=== PATIENT | male | born 1955 | race Caucasian/White ===

== ENCOUNTER 2018-09-07 11:24 | Emergency (ER) | payer OTHER ==
[~2018-09-07] VITALS: Ht 175.3 cm; Wt 76.2 kg
[2018-09-07] MEDS ORDERED: COLESTEROL (12:56)
[2018-09-07] MEDS ORDERED: ALEGRA (12:56)
== END 2018-09-07 15:08 | disposition home or self-care (01) ==
LOC: ER 11:24
DX: S43.491A Other sprain of right shoulder joint, initial encounter (principal); X50.0XXA Overexertion from strenuous movement or load, initial encounter; Y93.89 Activity, other specified; Y92.832 Beach as the place of occurrence of the external cause; Y99.8 Other external cause status

== ENCOUNTER 2020-04-10 15:46 | Outpatient (CLI) | payer OTHER ==
[~2020-04-10 15:46] MED LIST: ALEGRA; COLESTEROL
== END 2020-04-10 15:56 | disposition home or self-care (01) ==
LOC: RAD 15:46
PROVIDERS: ATTEND Urology
DX: Q61.8 Other cystic kidney diseases (principal); N40.0 Benign prostatic hyperplasia without lower urinary tract symptoms; N30.00 Acute cystitis without hematuria; Z01.811 Encounter for preprocedural respiratory examination; R31.1 Benign essential microscopic hematuria

== ENCOUNTER → 2023-12-31 11:48 | Outpatient (CLI) | payer OTHER | END | disposition home or self-care (01) | LOC: NUCLEAR 11:00 | PROVIDERS: ATTEND General Practice | DX: R20.0 Anesthesia of skin (principal); R06.02 Shortness of breath ==

== ENCOUNTER 2024-09-07 14:25 | Outpatient (CLI) | payer OTHER | END 2024-09-07 14:34 | disposition home or self-care (01) | LOC: SONOGRAMA 14:25 | PROVIDERS: ATTEND Urology | DX: N40.0 Benign prostatic hyperplasia without lower urinary tract symptoms (principal); N30.00 Acute cystitis without hematuria; N20.0 Calculus of kidney; R33.9 Retention of urine, unspecified ==

== ENCOUNTER 2025-04-03 12:12 | Outpatient (CLI) | payer OTHER | END 2025-04-03 12:16 | disposition home or self-care (01) | LOC: SONOGRAMA 12:12 | PROVIDERS: ATTEND General Practice | DX: N20.0 Calculus of kidney (principal); R31.9 Hematuria, unspecified; M54.50 Low back pain, unspecified ==

== ENCOUNTER 2025-05-22 15:24 | Outpatient (CLI) | payer OTHER | END 2025-05-22 15:31 | disposition home or self-care (01) | LOC: RAD 15:24 | DX: M54.2 Cervicalgia (principal); M99.01 Segmental and somatic dysfunction of cervical region ==